=== PATIENT | male | born 1980 | race Caucasian/White ===

== ENCOUNTER 2021-04-23 17:48 | Inpatient (IN) ==
[2021-04-24] MEDS ORDERED: SODIUM CHLORIDE 0.9% 1,000 ML IV STA ×2 (04:42→06:41)
[2021-04-24] MEDS ORDERED: PANTOPRAZOLE 40 MG VIAL IV STA (04:42)
[2021-04-24] MEDS ORDERED: ONDANSETRON 4 MG/2 ML VIAL IV STA (04:42)
[2021-04-24] MEDS ORDERED: DEXAMETHASONE 4 MG/1 ML VIAL IV STA (05:43)
[2021-04-24 06:06] LABS: Basophils # 0.2 10*3/uL (0.0-0.2); Basophils % 0.8 % (0.0-0.8); Hemoglobin 15.1 GM/DL (14.0-18.0); Immature Granulocytes % 8.8 %; Immature Granulocytes Absolute 1.69 #; Lymphocytes % 5.1 % (21.2-54.2); Mean Corpuscular HGB Conc 31.5 GM/DL (32-36); Mean Corpuscular Volume 95.2 FL (87-102); Mean Platelet Volume 9.3 FL (9.6-12.0); Monocytes % 5.4 % (1.7-12.7); Neutrophils % 79.9 % (38.7-73.9); Platelet Count 478 T/CUMM (130-400); Red Blood Count 5.04 MC/CUMM (3.8-5.5); Red Cell Distribution Width 12.4 % (9.3-17.3); White Blood Count 19.3 T/CUMM (4-12)
[2021-04-24] MEDS ORDERED: LEVOFLOXACIN INJ 750 MG/150 ML PREMIX IV STA (06:19)
[2021-04-24 06:27] LABS: Anisocytosis Slight; Band Neutrophils 16 % (0-10); Eosinophils 1 % (0-10); Lymphocytes 6 % (20-55); Metamyelocytes 5 %; Myelocytes 2 %; Nucleated Red Blood Cells 1 (0-5); Platelet Estimate Normal; Segmented Neutrophils 64 % (50-85); Total Cells Counted 100
[2021-04-24 06:28] LABS: Macrocytosis Slight
[2021-04-24 06:30] LABS: Alanine Aminotransferase 25 U/L (16-61); Albumin 3.2 G/DL (3.4-5.0); Alkaline Phosphatase 116 U/L (45-117); Amylase 28 U/L (25-115); Aspartate Amino Transferase 12 U/L (0-37); Blood Urea Nitrogen 34 MG/DL (7-18); Calcium 9.2 MG/DL (8.5-10.1); Carbon Dioxide 7 MMOL/L (21-32); Estimated Glom Filtration Rate 47 ML/MIN; Osmolality,Calculated 305.1 MOS/KG (273-304); Potassium 4.9 MMOL/L (3.5-5.1); Sodium 135 MMOL/L (136-145); Total Protein 8.4 G/DL (6.4-8.2)
[2021-04-24 06:34] LABS: Glucose 603 MG/DL (74-106)
[2021-04-24] MEDS ORDERED: INSULIN REGULAR 100 UNIT/ML IV STA ×2 (06:42→15:40)
[2021-04-24 07:18] LABS: ABG Base Excess -21.8 MMOL/L (-2.5-2.5); ABG HCO3 9.4 MMOL/L (20-26); ABG Oxygen Saturation 96.6 % (95-100); Allen Test Positive
[2021-04-24 07:23] LABS: ABG PCO2 14.3 MM HG (35-48); ABG PH 7.199 (7.35-7.45)
[2021-04-24] MEDS ORDERED: SODIUM PHOSPHATE IV PRN (07:35)
[2021-04-24] MEDS ORDERED: SODIUM BICARB INJ 100 MEQ in STERILE WATER INJ 400 ML IV PRN (07:35)
[2021-04-24] MEDS ORDERED: POTASSIUM CHLORIDE RIDER 10 MEQ/100 ML PREMIX IV PRN (07:35)
[2021-04-24] MEDS ORDERED: MAGNESIUM SULF RIDER 2 GM/50 ML PREMIX IV PRN (07:35)
[2021-04-24] MEDS ORDERED: SODIUM CHLORIDE 0.9% IV PRN (07:35)
[2021-04-24] MEDS ORDERED: SODIUM CHLORIDE 0.9% 1,000 ML IV ONE (07:35)
[2021-04-24] MEDS ORDERED: MAGNESIUM SULF RIDER 4 GM/100 ML PREMIX IV PRN (07:35)
[2021-04-24] MEDS: SODIUM CHLORIDE 0.9% 1,000 ML IV SCH ×8 (07:45→23:54)
[2021-04-24] MEDS ORDERED: DEXTROSE 50% 25 GM/50 ML SYRINGE IV PRN ×2 (07:48)
[2021-04-24] MEDS ORDERED: AZITHROMYCIN INJ 500 MG in SODIUM CHLORIDE 0.9% 250 ML IV ONE (09:00)
[2021-04-24 09:24] LABS: Bilirubin,Urine Negative (Negative); Blood, Urine Small mg/dL (Negative); Glucose,Urine (UA) >=500 mg/dL (Negative); Ketones,Urine 80 mg/dL (Negative); Mucus,Urine Occasional /LPF (Occasional); Nitrite,Urine Negative (Negative); Protein,Urine 100 MG/DL; RBC,Urine 2 /HPF (0-4); Squamous Epithelial Cell,Urine Occasional /HPF (0-10); Urine Appearance CLEAR (Clear); Urine Color Straw (Yellow); Urine Urobilinogen < 2.0 EU/DL (<2.0)
[2021-04-24 09:36] LABS: Calcium 8.2 MG/DL (8.5-10.1); Osmolality,Calculated 299.7 MOS/KG (273-304); Potassium 4.9 MMOL/L (3.5-5.1)
[2021-04-24] MEDS: FAMOTIDINE 20 MG TABLET PO SCH ×2 (10:15→22:20)
[2021-04-24] MEDS: cefTRIAXone 1,000 MG in SODIUM CHLORIDE 0.9% 100 ML IV SCH (10:15)
[2021-04-24] MEDS: CHOLECALCIFEROL 1,000 UNIT TABLET PO SCH (10:15)
[2021-04-24] MEDS: ZINC GLUCONATE 50 MG TABLET PO SCH (10:15)
[2021-04-24] MEDS: ASCORBIC ACID 500 MG TABLET PO SCH ×2 (10:15→22:20)
[2021-04-24] MEDS: INSULIN REGULAR DRIP 100 ML IV SCH (10:45)
[2021-04-24] MEDS: ENOXAPARIN 40 MG/0.4 ML SYRINGE SUBCUT SCH (12:57)
[2021-04-24 13:34] LABS: Calcium 7.9 MG/DL (8.5-10.1); Osmolality,Calculated 299.3 MOS/KG (273-304); Potassium 4.2 MMOL/L (3.5-5.1)
[2021-04-24 16:13] LABS: Calcium 7.6 MG/DL (8.5-10.1); Osmolality,Calculated 296.1 MOS/KG (273-304); Potassium 4.4 MMOL/L (3.5-5.1)
[2021-04-24] MEDS: IVERMECTIN 3 MG TABLET PO SCH (18:00)
[2021-04-24 20:52] VITALS: BP 154/95
[2021-04-24] MEDS: DEXTROSE 5% NACL 0.45% 1,000 ML IV SCH (21:02)
[2021-04-24 22:20] LABS: ABG Base Excess -13.4 MMOL/L (-2.5-2.5); ABG HCO3 14.2 MMOL/L (20-26); ABG Oxygen Saturation 96.8 % (95-100); ABG PCO2 21.9 MM HG (35-48); ABG PH 7.319 (7.35-7.45); ABG PO2 85.5 MM HG (80-95); ABG TCO2 10.1 MMOL/L (23-27)
[2021-04-24 22:46] LABS: Calcium 7.3 MG/DL (8.5-10.1); Osmolality,Calculated 291.8 MOS/KG (273-304); Potassium 3.8 MMOL/L (3.5-5.1)
[2021-04-24] MEDS: MELATONIN 3 MG TABLET PO PRN (23:05)
[2021-04-25] MEDS: DEXT 5% NACL 0.45% KCL 20 MEQ 20 MEQ/1,000 ML BAG IV SCH ×3 (00:39→10:08)
[2021-04-25] MEDS: ONDANSETRON 4 MG/2 ML VIAL IV PRN ×4 (00:45→13:40)
[2021-04-25] MEDS: INSULIN REGULAR DRIP 100 ML IV SCH ×2 (00:52→16:17)
[2021-04-25] MEDS: SODIUM CHLORIDE 0.45% 1,000 ML IV SCH ×2 (00:52→10:00)
[2021-04-25] MEDS: DEXTROSE 5% NACL 0.45% 1,000 ML IV SCH ×3 (02:16→16:17)
[2021-04-25 02:28] LABS: Basophils % 0.3 % (0.0-0.8); Eosinophils % 0.1 % (0.00-10.9)
[2021-04-25 02:33] LABS: Hematocrit 34.5 VOL% (42.0-52.0); Immature Granulocytes % 4.7 %; Immature Granulocytes Absolute 0.74 #; Lymphocytes # 1.2 10*3/uL (1.4-4.0); Lymphocytes % 7.4 % (21.2-54.2); Mean Corpuscular HGB Conc 32.5 GM/DL (32-36); Mean Corpuscular Volume 92.5 FL (87-102); Monocytes % 12.4 % (1.7-12.7); Neutrophils % 75.1 % (38.7-73.9); Red Blood Count 3.73 MC/CUMM (3.8-5.5); Red Cell Distribution Width 12.5 % (9.3-17.3); White Blood Count 15.9 T/CUMM (4-12)
[2021-04-25 02:43] LABS: Hemoglobin 11.2 GM/DL (14.0-18.0); Platelet Count 331 T/CUMM (130-400)
[2021-04-25 02:49] LABS: Calcium 7.3 MG/DL (8.5-10.1); Osmolality,Calculated 285.3 MOS/KG (273-304); Potassium 3.5 MMOL/L (3.5-5.1)
[2021-04-25 02:51] LABS: Band Neutrophils 1 % (0-10); Lymphocytes 2 % (20-55); Platelet Estimate Normal; Segmented Neutrophils 88 % (50-85); Total Cells Counted 100
[2021-04-25 02:52] LABS: Ferritin 609.6 ng/mL (26-388)
[2021-04-25 03:02] LABS: Risk Ratio 4.82
[2021-04-25] MEDS: POTASSIUM CHLORIDE 20 MEQ TABLET PO PRN ×2 (03:10→05:00)
[2021-04-25] MEDS: SODIUM CHLORIDE 0.9% 1,000 ML IV SCH ×3 (04:23→16:17)
[2021-04-25 07:50] LABS: ABG Base Excess -9.4 MMOL/L (-2.5-2.5); ABG HCO3 16.9 MMOL/L (20-26); ABG Oxygen Saturation 95.8 % (95-100); ABG PCO2 28.2 MM HG (35-48); ABG PH 7.339 (7.35-7.45); ABG TCO2 13.6 MMOL/L (23-27)
[2021-04-25] MEDS ORDERED: SODIUM PHOSPHATE INJ 30 MMOL in SODIUM CHLORIDE 0.9% 250 ML IV ONE (09:00)
[2021-04-25] MEDS ORDERED: INSULIN GLARGINE 100 UNIT/ML SUBCUT ONE (09:05)
[2021-04-25] MEDS ORDERED: GLUCAGON 1 MG VIAL IM PRN (09:25)
[2021-04-25] MEDS ORDERED: LACTATED RINGERS 1,000 ML IV ONE (09:27)
[2021-04-25] MEDS: ENOXAPARIN 40 MG/0.4 ML SYRINGE SUBCUT SCH (10:00)
[2021-04-25] MEDS: FAMOTIDINE 20 MG TABLET PO SCH ×2 (10:00→21:28)
[2021-04-25] MEDS: cefTRIAXone 1,000 MG in SODIUM CHLORIDE 0.9% 100 ML IV SCH (10:00)
[2021-04-25] MEDS: DEXAMETHASONE 4 MG/1 ML VIAL IV SCH (10:00)
[2021-04-25] MEDS: IVERMECTIN 3 MG TABLET PO SCH (10:00)
[2021-04-25] MEDS: ASCORBIC ACID 500 MG TABLET PO SCH ×2 (10:00→21:29)
[2021-04-25] MEDS: AZITHROMYCIN 250 MG TABLET PO SCH (10:00)
[2021-04-25] MEDS: CHOLECALCIFEROL 1,000 UNIT TABLET PO SCH (10:00)
[2021-04-25] MEDS: ZINC GLUCONATE 50 MG TABLET PO SCH (10:00)
[2021-04-25] MEDS: INSULIN GLARGINE 100 UNIT/ML SUBCUT SCH (10:11)
[2021-04-25 12:25] LABS: Calcium 7.6 MG/DL (8.5-10.1); Osmolality,Calculated 283.5 MOS/KG (273-304)
[2021-04-25] MEDS ORDERED: SODIUM BICARBONATE 50 MEQ/50 ML VIAL IV ONE (13:14)
[2021-04-25] MEDS: INSULIN LISPRO 100 UNIT/ML SUBCUT SCH ×3 (13:35→21:28)
[2021-04-25] MEDS: ALBUTEROL INHALER 18 GM INH SCH ×2 (14:00→18:31)
[2021-04-25] MEDS: LACTATED RINGERS 1,000 ML IV SCH (15:00)
[2021-04-25] MEDS: MELATONIN 3 MG TABLET PO PRN (21:29)
[2021-04-26] MEDS: LACTATED RINGERS 1,000 ML IV SCH ×2 (01:00→15:16)
[2021-04-26] MEDS: ALBUTEROL INHALER 18 GM INH SCH ×3 (02:30→15:08)
[2021-04-26 06:06] LABS: Basophils % 0.2 % (0.0-0.8); Eosinophils % 0.4 % (0.00-10.9); Hematocrit 35.8 VOL% (42.0-52.0); Hemoglobin 11.7 GM/DL (14.0-18.0); Immature Granulocytes % 2.6 %; Immature Granulocytes Absolute 0.25 #; Lymphocytes # 1.4 10*3/uL (1.4-4.0); Lymphocytes % 13.9 % (21.2-54.2); Mean Corpuscular HGB Conc 32.7 GM/DL (32-36); Mean Corpuscular Volume 91.1 FL (87-102); Mean Platelet Volume 9.4 FL (9.6-12.0); Monocytes % 13.3 % (1.7-12.7); Neutrophils % 69.6 % (38.7-73.9); Platelet Count 293 T/CUMM (130-400); Red Blood Count 3.93 MC/CUMM (3.8-5.5); Red Cell Distribution Width 12.3 % (9.3-17.3); White Blood Count 9.8 T/CUMM (4-12)
[2021-04-26 06:33] LABS: Calcium 7.9 MG/DL (8.5-10.1); Osmolality,Calculated 284.1 MOS/KG (273-304); Potassium 3.2 MMOL/L (3.5-5.1)
[2021-04-26] MEDS ORDERED: GLIMEPIRIDE 4 MG TABLET PO SCH (08:00)
[2021-04-26] MEDS ORDERED: FUROSEMIDE 40 MG/4 ML VIAL IV ONE (08:59)
[2021-04-26] MEDS: INSULIN LISPRO 100 UNIT/ML SUBCUT SCH ×2 (10:00→12:30)
[2021-04-26] MEDS: DEXAMETHASONE 4 MG/1 ML VIAL IV SCH (10:04)
[2021-04-26] MEDS: FAMOTIDINE 20 MG TABLET PO SCH (10:10)
[2021-04-26] MEDS: INSULIN GLARGINE 100 UNIT/ML SUBCUT SCH (10:15)
[2021-04-26] MEDS: IVERMECTIN 3 MG TABLET PO SCH (10:30)
[2021-04-26] MEDS: CHOLECALCIFEROL 1,000 UNIT TABLET PO SCH (10:30)
[2021-04-26] MEDS: AZITHROMYCIN 250 MG TABLET PO SCH (10:30)
[2021-04-26] MEDS: ASCORBIC ACID 500 MG TABLET PO SCH (10:30)
[2021-04-26] MEDS: cefTRIAXone 1,000 MG in SODIUM CHLORIDE 0.9% 100 ML IV SCH (10:30)
[2021-04-26] MEDS ORDERED: POTASSIUM CHLORIDE 20 MEQ TABLET PO ONE ×2 (10:50→13:00)
[2021-04-26] MEDS: ENOXAPARIN 40 MG/0.4 ML SYRINGE SUBCUT SCH (15:12)
[2021-04-26] MEDS: ZINC GLUCONATE 50 MG TABLET PO SCH (15:14)
== END 2021-04-26 13:45 | disposition home or self-care (01) | DRG 177 ==
LOC: N.ED 17:48 → N.EDINP 04-24 07:35 → SUATTDRO 04-24 07:35 → N.CC 04-24 21:27
PROVIDERS: ADMIT Internal Medicine; ATTEND Internal Medicine